=== PATIENT | female | born 1990 | race Caucasian/White ===

== ENCOUNTER 2025-04-11 09:39 | Emergency (ER) | payer OTHER, SELFPAY ==
[2025-04-11 09:51] VITALS: BP 153/91; PULSE 85; RESP 16; TEMP 36.8; O2SAT 100; BMI 21.2
--- NOTE | 2025-04-11 10:00 | ED_ITS ---
HPI - Nausea/Vomiting/Diarrhea 2 General: Chief complaint: Nausea/Vomiting/Diarrhea Stated complaint: Drug withdraw Time Seen by Provider: 04/11/25 09:53 Source: patient Mode of arrival: ambulatory Limitations: no limitations History of Present Illness: 34-year-old female who states that she f eels like she is going through some withdrawal states she abuses fentanyl last time she abuse was 2 days ago and has not used in 2 days she said she started having some nausea vomiting this morning denies any severe pains denies any loss of consciousness denies any chest pain. Heart rate here is normal. Associated nausea: Yes Associated symtoms: Reports nausea Related Data Previous Rx's ?Medication ?Instructions ?Recorded ondansetron 4 mg disintegrating 4 mg PO Q6H PRN nausea and 04/11/25 tablet vomiting #14 tabs Allergies Allergy/AdvReac Type Severity Reaction Status Date / Time No Known Allergies Allergy Verified 04/11/25 09:54 Review of Systems 2 GI: Reports: nausea and vomiting Physical Exam 2 Const: COMMON NORMALS: no acute distress, patient oriented x3 and healthy appearing HENMT: COMMON NORMALS: normocephalic and atraumatic HEAD & SCALP: n ormocephalic and atraumatic Eye: COMMON NORMALS: conjunctivae normal CONJUNCTIVA: Yes conjunctivae normal Neck/C-Spine: COMMON NORMALS: full ROM and supple Chest: COMMONS NORMALS: normal inspection of the chest Resp: COMMON NORMALS: normal respiratory effort, No retractions, No use of accessory muscles and clear to auscultation bilaterally AUSCULTATION: clear to auscultation bilaterally Cardio: COMMON NORMALS: regular rate, regular rhythm and No murmurs present (Cardio) RATE: regular rate RHYTHM: regular rhythm GI: COMMON NORMALS: Normal to inspection, nondistended, normoactive bowel sounds present, Soft to palpation, non-tender and no masses PALPATION: Yes Soft to palpation Extremity: COMMON NORMALS: normal to inspection and full ROM Neuro: COMMON NORMALS: patient oriented x3, moves all extremities and no focal motor deficits Psych: COMMON NORMALS: mental status grossly normal, Normal thought process present and cooperative THOUGHT PROCESS: Normal thought process present Skin: COMMON NORMALS: no rashes or lesions noted and no wounds GENERAL SKIN EXAM: no rashes or lesions noted Course 2 Vital Signs: Vital signs: Vital Signs Temperature 98.3 F 04/11/25 09:51 Pulse Rate 88 04/11/25 11:13 Respiratory Rate 16 04/11/25 09:51 Blood Pressure 147/98 04/11/25 11:13 Pulse Oximetry 100 04/11/25 11:13 Oxygen Delivery Me thod Room Air 04/11/25 09:51 MDM - Nausea/Vomiting/Diarrhea Medical Decision Making Patient presents for nausea and vomiting. Differential includes food poisoning gastroenteritis withdrawals. Patient abdominal exam here is benign she has no signs of acute surgical abdomen no signs of appendicitis or cholecystitis. Heart rate here has been normal no signs of severe opioid withdrawal here she did feel much improved here after Zofran she is able to tolerate p.o. fluids. Did review her labs she had a normal electrolytes normal white count. Patient is at low risk for any decompensation diagnosis is vomiting are likely mild withdrawals will place her on Zofran she is to take Zofran as needed at home continue to push fluids informed her if she worsens she is to return she is to follow-up with PCP in 3 to 5 days and return if worsening she understands and agrees to plan. Medical Records I reviewed the patient's medical records. Lab Data I reviewed the patient's lab results. 04/11/25 10:07 04/11/25 10:07 Laboratory Results WBC 8.05 10^3/uL (3.29-11.43) 04/11/25 10:07 RBC 4.85 10^6/uL (3.85-5.65) 04/11/25 10:07 Hgb 14.50 g/dL (11.27-16.99) 04/11/25 10:07 Hct 43.2 % (36-47) 04/11/25 10:07 MCV 89.1 fl (85-98) 04/11/25 10:07 MCH 29.9 pg (27-33) 04/11/25 10:07 MCHC 33.6 g/dL (30-55) 04/11/25 10:07 RDW 12.0 % (12.1-15.1) L 04/11/25 10:07 Plt Count 435 10^3/cmm (157-399) H 04/11/25 10:07 MPV 8.0 fL (7.4-10.4) 04/11/25 10:07 Neut % (Auto) 67.5 % 04/11/25 10:07 Lymph % (Auto) 26.6 % 04/11/25 10:07 [place]one % (Auto) 4.3 % 04/11/25 10:07 Eos % (Auto) 0.4 % 04/11/25 10:07 Baso % (Auto) 0.6 % 04/11/25 10:07 Neut # (Auto) 5.43 10^3/uL (1.8-7.7) 04/11/25 10:07 Lymph # (Auto) 2.1 10^3/uL (0.8-4.8) 04/11/25 10:07 [place]one # (Auto) 0.4 10^3/uL (0.2-0.9) 04/11/25 10:07 Eos # (Auto) 0.0 10^3/uL (0.0-0.8) 04/11/25 10:07 Baso # (Auto) 0.1 10^3/uL (0.0-0.1) 04/11/25 10:07 Nucleated RBC % (auto) 0 % 04/11/25 10:07 Nucleated RBCs # 0.0 /100WBC 04/11/25 10:07 Sodium 138 mmol/L (136-145) 04/11/25 10:07 Potassium 3.7 mmol/L (3.5-5.1) 04/11/25 10:07 Chloride 103 mmol/L (98-107) 04/11/25 10:07 Carbon Dioxide 21 mmol/L (22-29) L 04/11/25 10:07 Anion Gap 17.7 (5-19) 04/11/25 10:07 BUN 5 mg/dL (6-20) L 04/11/25 10:07 Creatinine 0.5 mg/dL (0.5-0.9) 04/11/25 10:07 GFR Calculation 143.0 mL/min (90-130) H 04/11/25 10:07 Glucose 122 mg/dL (65-115) H 04/11/25 10:07 Calculated Osmolality 285 mOsm/kg (285-295) 04/11/25 10:07 Calcium 9.7 mg/dL (8.5-10.5) 04/11/25 10:07 Total Bilirubin 0.7 mg/dL (0.15-1.2) 04/11/25 10:07 AST 17 U/L (0-32) 04/11/25 10:07 ALT 19 U/L (0-33) 04/11/25 10:07 Alkaline Phosphatase 81 U/L (35-105) 04/11/25 10:07 Total Protein 7.8 g/dL (6.6-8.7) 04/11/25 10:07 Albumin 4.3 g/dL (3.5-5.2) 04/11/25 10:07 Globulin 3.5 g/dL (1.3-4.6) 04/11/25 10:07 Lipase 22 U/L (13-60) 04/11/25 10:07 HCG, Qual Negative (Negative) 04/11/25 10:07 All radiology interpretation(s) finalized by discharge Discharge Plan Discharge Patient Disposition: Home Clinical Impression: Vomiting Qualifiers: Vomiting type: unspecified Nausea presence: with nausea Qualified Code(s): R 11.2 - Nausea with vomiting, unspecified Condition: Stable Prescriptions: New ondansetron 4 mg tablet,disintegrating 4 mg PO Q6H PRN (Reason: nausea and vomiting) Qty: 14 0RF Discharge Orders: Discharge ED (Routine); Ordered 04/11/25 Ordered By: Tory Castañeda Discharge Diet: Advance as tolerated Discharge Activity: Resume usual activity Patient Instructions: Acute Nausea and Vomiting (ED) Print Language: Bengali Coding Level of Care Code 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
[2025-04-11] MEDS: ondansetron 2 mg/ML SDV 2 mL 4 MG IVP (10:04)
[2025-04-11 10:16] LABS: Hematocrit 43.2 % (36-47); Hemoglobin 14.50 g/dL (11.27-16.99); Mean Corpuscular HGB Conc 33.6 g/dL (30-55); Mean Corpuscular Hemoglobin 29.9 pg (27-33); Mean Corpuscular Volume 89.1 fl (85-98); Nucleated Red Blood Cells % 0 %; Platelet Count 435 10^3/cmm (157-399); Red Blood Count 4.85 10^6/uL (3.85-5.65); White Blood Count 8.05 10^3/uL (3.29-11.43)
[2025-04-11 10:40] LABS: HCG, Serum Qual Negative (Negative)
[2025-04-11 10:45] LABS: Alanine Aminotransferase 19 U/L (0-33); Albumin Level 4.3 g/dL (3.5-5.2); Alkaline Phosphatase 81 U/L (35-105); Anion Gap 17.7 (5-19); Aspartate Amino Transferase 17 U/L (0-32); Blood Urea Nitrogen 5 mg/dL (6-20); Calcium 9.7 mg/dL (8.5-10.5); Carbon Dioxide 21 mmol/L (22-29); Chloride 103 mmol/L (98-107); Creatinine Clr Calc Pharmacy 135.6916; Globulin 3.5 g/dL (1.3-4.6); Glucose 122 mg/dL (65-115); Lipase 22 U/L (13-60); Osmolality Calculated 285 mOsm/kg (285-295); Potassium 3.7 mmol/L (3.5-5.1); Sodium 138 mmol/L (136-145); Total Protein 7.8 g/dL (6.6-8.7)
--- NOTE | 2025-04-11 10:53 | PC.PHAR ---
Pt states she has taken Xanax, filled in [facility], in the past. I could not locate an active rx at [facility] or [facility] in [place].
[2025-04-11 11:13] VITALS: BP 147/98; PULSE 88; O2SAT 100
== END 2025-04-11 11:15 | disposition home or self-care (01) ==
PROVIDERS: Emergency Provider Emergency Medicine
DX: R11.2 Nausea with vomiting, unspecified (principal)
CPT/HCPCS: 36415; 80053; 83690; 84703; 85025; 96361; 96374; 99284; J2405; J7030; J9999